=== PATIENT | female | born 1945 | race Caucasian/White ===

== ENCOUNTER 2017-03-16 03:51 | Outpatient (CLI) | payer MEDICARE ==
[~2017-03-16 03:51] MED LIST: ACYC400T PO; ASCO-139 PO; ASPI81TA30 PO; CHOL2000 PO; DIAZ10TA4 PO; KRIL1CAP2 PO; LACT1CAP67 PO; LANTUS SQ; LOSA25TA96 PO; METF1000 PO; PHYT100T PO; PIOG30TA10 PO; SAXA5TAB PO
== END 2017-03-16 23:59 | disposition home or self-care (01) ==
LOC: DIABETIC 03:51
PROVIDERS: ATTEND Nurse Practitioner
DX: E11.65 Type 2 diabetes mellitus with hyperglycemia (principal); J45.909 Unspecified asthma, uncomplicated
CPT/HCPCS: G0108

== ENCOUNTER 2019-01-11 18:55 | Emergency (ER) | payer MEDICARE ==
[~2019-01-11] VITALS: Ht 154.9 cm; Wt 121.8 kg
[~2019-01-11 18:55] MED LIST changes: -KRIL1CAP2 PO; +KRIL1CAP4 PO
[2019-01-11 19:19] VITALS: BP 187/83
[2019-01-11 19:54] LABS: CLARITY,URINE CLEAR (Clear); COLOR,URINE YELLOW (Yellow); GLUCOSE, URINE 100 mg/dl (Neg); KETONES,URINE TRACE mg/dl (Neg); LEUKOCYTE ESTERASE ,URINE NEGATIVE (Neg); NITRITES, URINE NEGATIVE (Neg); OCCULT BLOOD,URINE NEGATIVE (Neg); PH,URINE 6.5 (4.8-8.0); PROTEIN,URINE NEGATIVE (Neg); UROBILINOGEN,URINE 0.2 E.U/dL (0.2-1.0)
[2019-01-11 19:57] LABS: UA COLLECTION TYPE CLN CATCH MIDSTREAM
[2019-01-11] MEDS ORDERED: PHEN-824 PO (20:46)
== END 2019-01-11 21:05 | disposition home or self-care (01) ==
LOC: ER 18:56
DX: R30.0 Dysuria (principal); Z88.0 Allergy status to penicillin; Z88.2 Allergy status to sulfonamides; Z79.82 Long term (current) use of aspirin; Z79.4 Long term (current) use of insulin; Z79.84 Long term (current) use of oral hypoglycemic drugs; Z79.899 Other long term (current) drug therapy
CPT/HCPCS: 81003; 99283; 99284